=== PATIENT | female | born 1985 | race Caucasian/White ===

== ENCOUNTER 2024-12-16 15:52 | Emergency (ER) | payer OTHER, SELFPAY ==
[2024-12-16 15:55] VITALS: BP 165/107
--- NOTE | 2024-12-16 16:20 | ED.GENMED ---
History of Present Illness
General
Chief Complaint: Head Injury
Time Seen by Provider: 12/16/24 16:17
History of Present Illness
History of Present Illness:
TIME OF INITIAL ENCOUNTER:
HPI: The patient was playing/tackling her 13-year-old son and then fell from a standing position striking the back of her head on the corner of a wall. She did not have much symptoms at first however then developed headache and a general unwell
feeling that she did with nausea. The light started bothering her and she does have a history of migraines.
EXAM:
GENERAL: Well appearing in no distress, elevated BMI
CERVICAL SPINE: No midline c-spine tenderness with excellent AROM
HEAD: The patient does have a small hematoma over the right side of the parieto-occipital region
CHEST: No chest wall tenderness, normal heart sounds
LUNGS: Equal lung sounds, no respiratory distress
ABDOMEN: No abdominal tenderness, no peritoneal signs
EXTREMITIES: Normal active range of motion, no tenderness
NEURO: Excellent strength all extremities, appropriate mental status, normal speech/language
NUMBER AND COMPLEXITY OF PROBLEMS ADDRESSED AT THE ENCOUNTER
� Chronic conditions affecting care: Migraines
� Acute Exacerbation and/or Progression of Chronic Illness: This is an acute problem
� Differential Diagnosis includes: Minor head injury, scalp hematoma, concussion, intracranial hemorrhage, exacerbation of migraine
AMOUNT AND/OR COMPLEXITY OF DATA TO BE REVIEWED AND ANALYZED
� I performed an independent evaluation of and my interpretation is:
EKG:
CT: CT brain personally reviewed and see I see no acute intracranial hemorrhage
X-rays:
Laboratory Studies:
Other:
� Review of other/old records: I reviewed records, the patient had a CAT scan of the brain 2016 which was unremarkable
� Clinical information was obtained by an independent historian: I spoke to the at bedside
� Prescriptions/Medications Considered but not given: Declines antiemetic
� Further testing considered but not performed:
RISK OF COMPLICATIONS AND/OR MORBIDITY OR MORTALITY OF PATIENT MANAGEMENT
� Social determinants of health affecting care: Lives at home
� Discussion with other providers:
� Escalation of care including admission/observation vs risk of discharge considered: The patient has worsening symptoms since the injury therefore we will obtain CT imaging. However I more strong suspect degree of migraine.
Giving Tylenol for pain but appears fairly comfortable with appropriate mental status.
ANY OTHER UPDATES:
4:55 PM: I reassessed patient. Unchanged neurologic status.
Past History
Past History
ED Past Medical History: Hypothyroidism and Other
Social History
Tobacco: Non-smoker
Personal:
Living: with family
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
Phy Exam
Physical Exam
Physical Exam:
See HPI
Course
Orders/Labs/Results
Orders:
Orders
12/16/24 16:02
CT Head W/o Iv Contrast Urgent
Comment:
Reason For Exam: fall, +head strike
12/16/24 16:21
Acetaminophen [Tylenol] 1,000 mg PO NOW STA
Vital Signs
Initial and Last Documented VS:
Initial Vital Signs
Temp Pulse Resp BP Pulse Ox
36.8 C 86 18 165/107 99
12/16/24 15:55 12/16/24 15:55 12/16/24 15:55 12/16/24 15:55 12/16/24 15:55
Last Documented Vital Signs
Temp Pulse Resp BP Pulse Ox
36.8 C 86 18 165/107 99
12/16/24 15:55 12/16/24 15:55 12/16/24 15:55 12/16/24 15:55 12/16/24 15:55
*Critical Care Note
Total Time (30-74mins, 75-104mins- exclusive of procedures): Not Applicable
ED Attending Note
-
Portions of this chart may have been created with voice recognition software.� Occasional wrong word or��sound alike� substitutions may have occurred due to the inherent limitations of voice recognition software.
Discharge Plan
Departure
Patient Disposition: Home (Routine Discharge)
Date of Disposition: 12/16/24
Time of Disposition: 17:01
Patient with high blood pressure during this ER visit?: Yes
Discharge Problem:
Head injury
Instructions: Minor Head Injury (DC), BLOOD PRESSURE
Prescriptions:
No Action
prednisone 50 MG tablet
50 mg PO DAILY Qty: 5 0RF
amoxicillin-pot clavulanate 1 TABLET tablet
1 tab PO Q12 Qty: 20 0RF
Referrals:
Tati Rogers, DO [Family Provider] -
Activity Restrictions/Additional Instructions:
The CAT scan of the brain shows no bleeding. Return here if worse or other concerns. Follow-up with your primary care doctor as your blood pressure initially was very high at 165/107.
Interventions
Interventions:
*Risk Screen - Suicide Last Done: 12/16/24 16:01
*General Assessment Last Done: 12/16/24 16:27
*Neglect/Abuse Screening Last Done: 12/16/24 16:01
*ED COVID-19 Vaccine History Last Done: 12/16/24 16:00
ED- Neurological Assessment Last Done: 12/16/24 16:26
ED-Skin Assessment Last Done: 12/16/24 16:26
Discharge Date and Time
Print Language: [id number]
[2024-12-16] MEDS: TYLENOL 1000 MG PO (16:25)
== END 2024-12-16 17:33 | disposition home or self-care (01) ==
LOC: EMR 15:52
PROVIDERS: EMERGENCY PHYSICIAN Emergency Medicine; FAMILY PHYSICIAN Internal Medicine
DX: S09.90XA Unspecified injury of head, initial encounter (principal); W19.XXXA Unspecified fall, initial encounter; E03.9 Hypothyroidism, unspecified
CPT/HCPCS: 99284; 70450

== ENCOUNTER → 2025-05-21 06:47 | Outpatient (REF) | payer OTHER, SELFPAY | LOC: MRI 3T 06:47 | PROVIDERS: ATTENDING PHYSICIAN Orthopaedic Surgery; FAMILY PHYSICIAN Internal Medicine | DX: M25.562 Pain in left knee (principal) | CPT/HCPCS: 73721 ==